=== PATIENT | male | born 1955 | race Caucasian/White ===

== ENCOUNTER 2023-03-13 08:48 | Outpatient (OUT) | payer MEDICARE, OTHER, SELFPAY ==
--- NOTE | 2023-03-13 08:54 | VEIN_ITS ---
Patient: LINO MENDEZ Exam Date: 03/13/2023 : 1955 Gender:M Ordering : DR MONA COELLO D.P.M. Admission #: [id number] Family : PETROS PECK WOUND C Order #: [id number] CLICK HERE TO VIEW EXAM RADIOLOGY REPORT PROCEDURE: VC EXT VENOUS REFLUX JULIETH LMTD COMPARISON: None. INDICATIONS: Painful varicose veins bilateral I83.813 TECHNIQUE: Duplex imaging of the lower extremity to assess the deep and superficial venous system for the presence of deep or superficial venous incompetence and to document the location and severity of disease. The study includes evaluation of the great saphenous vein (GSV), anterior accessory saphenous vein (AASV) and small saphenous vein (SSV). Patient scanned in reverse Trendelenburg and standing. FINDINGS: RIGHT LOWER EXTREMITY: Saphenofemoral Junction Reflux: Yes 7.7mm 1.6 sec GSV: Diam (mm) Reflux/ Time (sec) Proximal Thigh 6.5 Yes 1.2 Mid Thigh 5.2 Yes 0.4 Distal Thigh 5.5 Yes 3.8 Prox Calf 7.3 Yes 3.2 Mid Calf 4.2 Yes 2.2 Saphenopopliteal Junction Reflux: 5.7mm Yes 0.8 SSV: Proximal Calf 5.5 Yes 1.5 Mid Calf 3.8 Yes 0.8 AASV: Proximal Thigh 5.5 Yes 0.2 Mid Thigh 2.8 Yes 0.4 Distal Thigh Thrombi: No acute or chronic thrombus. Compressibility: Normal. Flow: Moderate deep venous reflux. Preforator: Dist medial lower leg near wound 4.1 mm with 3.8s reflux. Mid medial lower leg 4.8 mm, 2.5s reflux. Tech Note: Incompetent varicose vein mid medial lower leg measures 4.4 mm with 3.8s reflux. Popliteal fossa varicose vein measures 4.3 mm with 1.1s reflux. Varicosity distal medial thigh off GSV measures 4.0 mm with 3.2s reflux. Mid medial/anterior lower leg varicose vein measures 4.1 mm with 2.0s reflux. LEFT LOWER EXTREMITY: Saphenofemoral Junction Reflux: Yes 6.7 mm 1.8 sec GSV: Diam (mm) Reflux/Time (sec) Proximal Thigh 6.5 Yes 1.0 Mid Thigh 4.9 Yes 1.2 Distal Thigh 5.2 Yes 3.8 Prox Calf 5.3 Yes 3.9 Mid Calf 2.8 Yes 3.1 Saphenopopliteal Junction Relux: 6.4 mm Yes 3.5 SSV: Proximal Calf 5.9 Yes 3.8 Mid Calf 4.7 Yes 3.9 AASV: Proximal Thigh 1.9 No Mid Thigh Distal Thigh Thrombi: No acute or chronic thrombus. Compressibility: Normal. Flow: Mild deep venous reflux. Biomedical Service Engineer:Dist medial lower leg 3.2 mm with 2.0s reflux. Distal medial lower leg 3.8 mm with 2.4s reflux. Mid posterior calf 3.7 mm with 1.3s reflux. Tech Note: Incompetent varicose vein distal medial lower leg measures 4.0 mm with 2.8s reflux. Mid medial lower leg varicosity measures 4.9 mm with 1.0s reflux. Varicose vein proximal medial lower leg off GSV measures 6.1 mm with 3.7s reflux. Mid posterior calf varicose vein off of cementer oil well/gastroc measures 4.2 mm with 0.7s reflux. CONCLUSION: 1. Dilated, incompetent great saphenous vein bilaterally, small saphenous vein bilaterally, bilateral cementer oil well veins, and numerous incompetent branch saphenous varicosities. 2. Consultation for endovenous ablation is recommended. Dictated by: Gume De Jesus M.D. on 03/13/2023 at 10:20 Approved by: Gume De Jesus M.D. on 03/13/2023 at 11:12
--- NOTE | 2023-03-13 08:56 | VEIN_ITS ---
Patient: LINO MENDEZ Exam Date: 03/13/2023 : 1955 Gender:M Ordering : DR MONA COELLO D.P.M. Admission #: [id number] Family : PETROS PECK WOUND C Order #: [id number] CLICK HERE TO VIEW EXAM RADIOLOGY REPORT PROCEDURE: [facility] - OFFICE VISIT INITIAL COMPARISON: None. PROGRESS NOTES: [age] year old male who presents with a 10 year history of bulging dilated veins, discolored veins, leg pain and swelling, muscle cramping, edema. The patient's right leg symptoms are worse than the left. There has been a progression of symptoms over time. This increases with prolonged dependency. The patient describes an improvement with rest and elevation. The patient denies any signs and symptoms to suggest arterial ischemia. The patient describes a family history of varicose veins on maternal side. The patient has drinking and smoking history of : Occasional alcohol consumption; no tobacco use. Patient has a past medical history significant for hypertension and atrial fibrillation. The patient denies a history of deep venous thrombus or pulmonary embolus. See separate history and physical for medication list. No prior treatment for varicose or spider veins. Greater than 1 year use of compression stockings. After review of nurse notes, history and physical exam I discussed at length the pathophysiology of venous hypertension and possible treatments, therapies and strategies available. We discussed at length the importance of elevating the lower extremities above the level of the heart, increased physical activity and compression stocking use. Ultrasound venous reflux study performed today was discussed at length with the patient. The report demonstrates dilated and markedly incompetent great saphenous veins bilaterally, small saphenous veins bilaterally, multiple incompetent branch saphenous varicosity, and several incompetent railway shunter veins of which 1 is located deep to patient's reoccurring skin wound/ulcer of right calf. PHYSICAL EXAM: The right leg demonstrates multiple varicosities, scattered spider veins, no current ulceration, moderate-marked edema, mild skin discoloration. The left leg demonstrates multiple varicosities, scattered spider veins, no ulceration, moderate edema, moderate skin discoloration. Both thighs, legs and feet were symmetrically warm to the touch. Good posterior tibial and dorsalis pedis pulses were present bilaterally. IMPRESSION: 1. Bilateral lower extremity venous insufficiency 2. Bilateral lower extremity varicose veins 3. Bilateral lower extremity subcutaneous edema 4. No flow significant arterial disease 5. CEAP: C4a, EC, AP, IA PLAN: 1. Continued use of compression stockings 2. Elevated legs and increased physical activity symptomatic relief 3. Endovenous laser ablation of right great saphenous vein, left great saphenous vein, right small saphenous vein, left small saphenous vein, right calf railway shunter vein deep to reoccurring ulcer, bilateral microfoam chemical ablation, and sclerotherapy as needed for reticular veins. Nurse notes, history and physical were reviewed and confirmed, see attached forms. The nurse was present throughout the physical exam and consultation Dictated by: Gume De Jesus M.D. on 03/13/2023 at 11:15 Approved by: Gume De Jesus M.D. on 03/13/2023 at 11:49
== END 2023-03-13 08:49 ==
LOC: VC 08:51
DX: I83.813 Varicose veins of bilateral lower extremities with pain (principal); I87.2 Venous insufficiency (chronic) (peripheral)
CPT/HCPCS: 93970; G0463

== ENCOUNTER 2023-03-27 09:07 | Outpatient (OUT) | payer MEDICARE, OTHER, SELFPAY ==
--- NOTE | 2023-03-27 09:09 | VEIN_ITS ---
[address] [address] Patient Name: LINO MENDEZ MRN: [id number] date: 1955 Sex: M Assigned Patient Location: Current Patient Location: Accession/Order Number: [id number] Exam Date: 03/27/2023 09:12 Report Date: 03/27/2023 10:26 At the request of: LINO GUERRERO Procedure: VC Endovenous Ablation 1VeinRT EXAMINATION: VC Endovenous Ablation 1VeinRT, right great saphenous vein HISTORY: Pain due to varicose veins of bilateral legs I83.813 COMPARISON: No relevant comparison available. TECHNIQUE: The risks and benefits of the procedure had been previously discussed, and were rediscussed at length. Informed written consent was obtained. Angelita Small and Rafal Denson assisted. Time out procedure was performed. The right lower extremity was prepared and draped in the usual sterile fashion to allow knee flexion in the sterile field. Duplex ultrasound probe was draped in a sterile cover, sterile transmission gel was used. Venous mapping was performed with the areas of dilation and large tributaries marked. The total length was 71 cm from the entry 4 cm above the medial malleolus to 3 cm below the saphenofemoral junction. The diameter of the greater saphenous vein ranged from 5-12 mm. A 30 gauge needle and 1% buffered lidocaine was used to anesthetize the entry site. A 4 mm incision was made with a scalpel and the saphenous vein was entered percutaneously under direct ultrasound guidance with a micropuncture set, a single stick was successful in gaining access. A micro-guide wire was inserted and the needle removed. A micro-set including a dilator was inserted over the microwire and the needle and dilator were removed. A 0.018 guide wire was inserted through the micro-set and threaded through the saphenous vein to the saphenofemoral junction. The dilator was removed and an introducer sheath was inserted over the wire until the end of the sheath entered the saphenofemoral junction. The dilator and wire were removed and the 600 micron fiber was introduced and placed and positioned so that it extended beyond the sheath and was 3 cm peripheral to the saphenofemoral femoral junction. Final position of the fiber was determined by ultrasound guidance and duplex imaging. Tumescent anesthetic was delivered by ultrasound guidance. 350 cc of fluid was delivered along the entire course of the saphenous vein. The solution consisted of 1000 cc of normal saline with 40 mL of 1% lidocaine and 20 mL of sodium bicarbonate. A final positioning check was made. The energy source was turned on by means of the foot pedal and the fiber and sheath were withdrawn. The total number of Joules delivered was 3731. The laser was active for 466 seconds under continuous pulse, average laser use of 8 J. Laser start time 10:03 AM 03/27/2023. Laser stop time 10:11 AM 03/27/2023. Double energy was applied to the first 5 cm due to the patient being anticoagulated A duplex ultrasound revealed compressibility and flow at the saphenofemoral junction immediately after the procedure. Hemostasis at the access site was achieved. The skin incision of the saphenous vein was closed with a 4 x 4. A compression stocking was applied. Postop instructions were given. A follow up appointment was recommended and scheduled. The patient tolerated the procedure well and was discharged in good condition. IMPRESSION: Technically successful endovenous laser ablation of the right great saphenous vein Electronically authenticated by: LINO GUERRERO Date: 03/27/2023 10:26
== END 2023-03-27 09:08 ==
LOC: VC 09:08
PROVIDERS: PCP Radiology Diagnostic Radiology; Visit Provider Radiology Diagnostic Radiology
DX: I83.813 Varicose veins of bilateral lower extremities with pain (principal)
CPT/HCPCS: 36478

== ENCOUNTER 2023-04-02 08:58 | Outpatient (OUT) | payer MEDICARE, OTHER, SELFPAY ==
--- NOTE | 2023-04-02 | VEIN_ITS ---
Patient: LINO MENDEZ Exam Date: 04/02/2023 : 1955 Gender:M Ordering : DR LINO GUERRERO M.D. Admission #: [id number] Family : Order #: [id number] CLICK HERE TO VIEW EXAM RADIOLOGY REPORT PROCEDURE: VC EXT VENOUS RT LMTD COMPARISON: None. INDICATIONS: Phlebitis of superficial veins of rt lower extremity I80.01 TECHNIQUE: Lower extremity tidwell scale and Duplex Doppler evaluation of the deep venous system from the inguinal ligament through the calf veins. FINDINGS: REGION: Right lower extremity. THROMBI: Negative for DVT. Heat induced thrombus visualized 1.7 cm from the SFJ. The heat induced thrombus extends from groin to mid calf. COMPRESSIBILITY: Non-compressible segments. FLOW: Areas of no flow. OTHER: CONCLUSION: 1. Successful post ablation occlusion of right great saphenous vein. Dictated by: Gume De Jesus M.D. on 04/02/2023 at 11:24 Approved by: Gume De Jesus M.D. on 04/02/2023 at 11:25
--- NOTE | 2023-04-02 09:00 | VEIN_ITS ---
Patient: LINO MENDEZ Exam Date: 04/02/2023 : 1955 Gender:M Ordering : DR LINO GUERRERO M.D. Admission #: [id number] Family : Order #: [id number] CLICK HERE TO VIEW EXAM RADIOLOGY REPORT PROCEDURE: [facility] - OFFICE VISIT FOLLOW UP COMPARISON: None. PROGRESS NOTES: The patient reports that no significant tenderness and no inflammation or redness at site of treatment. There has been interval reduction in varicosities. The patient has followed our recommendations to walk 20-30 minutes once or twice per day since the procedure. Physical exam demonstrates minimal bruising; no signs of infection, and slight decrease in varicosities of the right leg. Persistent varicosities are identified along the legs bilaterally. Review of the ultrasound performed the same day demonstrates occlusive thrombus extending throughout the treated vein, see separate report, consistent with a successful ablation. No thrombus extending into or beyond the saphenofemoral junction. The patient expressed a desire to proceed with treatment of left great saphenous vein. The patient was informed that treatment was a process and would require several procedures/sessions. IMPRESSION: 1. Successful ablation of the right great saphenous vein 2. Persistent dilated, incompetent veins and bilateral lower extremity symptoms PLAN: 1. Endovenous laser ablation of left great saphenous vein. Nurse notes, history and physical were reviewed and confirmed, see attached forms. The nurse was present throughout the physical exam and consultation Dictated by: Gume De Jesus M.D. on 04/02/2023 at 11:25 Approved by: Gume De Jesus M.D. on 04/02/2023 at 11:27
== END 2023-04-02 08:59 | disposition home or self-care (01) ==
LOC: VC 08:59
PROVIDERS: PCP Radiology Diagnostic Radiology; Visit Provider Radiology Diagnostic Radiology
DX: I80.01 Phlebitis and thrombophlebitis of superficial vessels of right lower extremity (principal)
CPT/HCPCS: 93971; G0463

== ENCOUNTER 2023-04-06 12:57 | Outpatient (OUT) | payer MEDICARE, OTHER, SELFPAY ==
--- NOTE | 2023-04-06 | VEIN_ITS ---
[address] [address] Patient Name: LINO MENDEZ MRN: [id number] date: 1955 Sex: M Assigned Patient Location: Current Patient Location: Accession/Order Number: [id number] Exam Date: 04/06/2023 13:05 Report Date: 04/06/2023 14:16 At the request of: LINO GUERRERO Procedure: VC Endovenous Ablation 1VeinLT EXAMINATION: VC Endovenous Ablation 1VeinLT HISTORY: Pain due to varicose veins of bilateral legs I83.813 COMPARISON: No relevant comparison available. TECHNIQUE: The risks and benefits of the procedure had been previously discussed, and were rediscussed at length. Informed written consent was obtained. Seble Small and Rafal Denson assisted. Time out procedure was performed. The left lower extremity was prepared and draped in the usual sterile fashion to allow knee flexion in the sterile field. Duplex ultrasound probe was draped in a sterile cover, sterile transmission gel was used. Venous mapping was performed with the areas of dilation and large tributaries marked. The total length was 47 cm from the entry mid calf to 3 cm below the saphenofemoral junction. The diameter of the greater saphenous vein ranged from 5-10 mm. A 30 gauge needle and 1% buffered lidocaine was used to anesthetize the entry site. A 4 mm incision was made with a scalpel and the saphenous vein was entered percutaneously under direct ultrasound guidance with a micropuncture set, a single stick was successful in gaining access. A micro-guide wire was inserted and the needle removed. A micro-set including a dilator was inserted over the microwire and the needle and dilator were removed. A 0.018 guide wire was inserted through the micro-set and threaded through the saphenous vein to the saphenofemoral junction. The dilator was removed and an introducer sheath was inserted over the wire until the end of the sheath entered the saphenofemoral junction. The dilator and wire were removed and the 600 micron fiber was introduced and placed and positioned so that it extended beyond the sheath and was 3 cm peripheral to the saphenofemoral femoral junction. Final position of the fiber was determined by ultrasound guidance and duplex imaging. Tumescent anesthetic was delivered by ultrasound guidance. 250 cc of fluid was delivered along the entire course of the saphenous vein. The solution consisted of 1000 cc of normal saline with 40 mL of 1% lidocaine and 20 mL of sodium bicarbonate. A final positioning check was made. The energy source was turned on by means of the foot pedal and the fiber and sheath were withdrawn. The total number of Joules delivered was 2287. The laser was active for 286 seconds under continuous pulse, average laser use of 8 J. Laser start time 50 3:00 PM 04/06/2023 . Laser stop time 1:58 PM 04/06/2023 . A duplex ultrasound revealed compressibility and flow at the saphenofemoral junction immediately after the procedure. Hemostasis at the access site was achieved. The skin incision of the saphenous vein was closed with a 4 x 4. A compression stocking was applied. Postop instructions were given. A follow up appointment was recommended and scheduled. The patient tolerated the procedure well and was discharged in good condition . IMPRESSION: Technically successful endovenous laser ablation of the left great saphenous vein Electronically authenticated by: LINO GUERRERO Date: 04/06/2023 14:16
[2023-04-07] MEDS: LIDOCAINE HCL 10 ML, SODIUM BICARBONATE 1 MEQ INJ (07:43)
[2023-04-07] MEDS: 0.9 % SODIUM CHLORIDE 500 ML, LIDOCAINE HCL 20 ML, SODIUM BICARBONATE 10 MEQ INJ (07:43)
== END 2023-04-06 12:58 | disposition home or self-care (01) ==
LOC: VC 12:57
PROVIDERS: PCP Radiology Diagnostic Radiology; Visit Provider Radiology Diagnostic Radiology
DX: I83.813 Varicose veins of bilateral lower extremities with pain (principal)
CPT/HCPCS: 36478

== ENCOUNTER 2023-04-10 07:30 | Outpatient (OUT) | payer MEDICARE, OTHER, SELFPAY ==
--- NOTE | 2023-04-10 07:32 | VEIN_ITS ---
Patient: CHANG MENDEZ Exam Date: 04/10/2023 : 1955 Gender:M Ordering : DR CHANG DEVINE M.D. Admission #: [id number] Family : Order #: [id number] CLICK HERE TO VIEW EXAM RADIOLOGY REPORT PROCEDURE: [facility] - OFFICE VISIT FOLLOW UP COMPARISON: FACILITY EST LMTD, 04/02/2023. PROGRESS NOTES: The patient reports no significant difficulty following intravenous laser ablation of the left great saphenous vein. The patient does report some mild pain in the distal left medial thigh. The patient did not require oral analgesics. The patient has worn his compression stocking as directed. The patient has followed our recommendations to walk 20-30 minutes once or twice per day since the procedure. Physical exam demonstrates no areas of erythema warmth or new ulceration. Thrombosed left great saphenous vein to be palpated. Review of the ultrasound performed the same day demonstrates occlusive thrombus extending throughout the treated left great saphenous vein with heat induced thrombus 1.2 cm from the saphenofemoral junction. The epigastric vein remains patent. The patient expressed a desire to proceed with treatment of incompetent left small saphenous vein with intravenous laser ablation. IMPRESSION: 1. Successful ablation of the left great saphenous vein 2. Incompetent left small saphenous vein PLAN: Intravenous laser ablation left small saphenous vein Nurse notes, history and physical were reviewed and confirmed, see attached forms. The nurse was present throughout the physical exam and consultation Dictated by: Chang Devine MD on 04/10/2023 at 08:21 Approved by: Chang Devine MD on 04/10/2023 at 08:23
--- NOTE | 2023-04-10 07:32 | VEIN_ITS ---
Patient: CHANG MENDEZ Exam Date: 04/10/2023 : 1955 Gender:M Ordering : DR CHANG DEVINE M.D. Admission #: [id number] Family : Order #: [id number] CLICK HERE TO VIEW EXAM RADIOLOGY REPORT PROCEDURE: VC EXT VENOUS LT LIMITED COMPARISON: None. INDICATIONS: I80.02 Phlebitis of superficial veins of lt lower extremity TECHNIQUE: Lower extremity tidwell scale and Duplex Doppler evaluation of the deep venous system from the inguinal ligament through the calf veins. FINDINGS: REGION: Left lower extremity. THROMBI: Negative for DVT. Heat induced thrombus in left GSV 1.2 cm from SFJ and extends to proximal calf. COMPRESSIBILITY: Non-compressible segments corresponding to thrombus. FLOW: Absent flow corresponding to thrombus *Exam performed in accordance with [facility] practice guidelines- Peripheral venous ultrasound, January 05, 2010. CONCLUSION: Post ablation occlusion of the left great saphenous vein with heat induced thrombus 1.2 cm from the saphenofemoral junction Dictated by: Chang Devine MD on 04/10/2023 at 07:54 Approved by: Chang Devine MD on 04/10/2023 at 07:56
== END 2023-04-10 07:31 | disposition home or self-care (01) ==
LOC: VC 07:30
PROVIDERS: PCP Radiology Diagnostic Radiology; Visit Provider Radiology Diagnostic Radiology
DX: I80.02 Phlebitis and thrombophlebitis of superficial vessels of left lower extremity (principal); I83.92 Asymptomatic varicose veins of left lower extremity
CPT/HCPCS: 93971; G0463

== ENCOUNTER 2023-04-27 12:54 | Outpatient (OUT) | payer MEDICARE, OTHER, SELFPAY ==
--- NOTE | 2023-04-27 12:56 | VEIN_ITS ---
[address] [address] Patient Name: LINO MENDEZ MRN: [id number] date: 1955 Sex: M Assigned Patient Location: Current Patient Location: Accession/Order Number: [id number] Exam Date: 04/27/2023 13:00 Report Date: 04/27/2023 16:02 At the request of: LINO GUERRERO Procedure: VC Endovenous Ablation 1VeinLT EXAMINATION: VC Endovenous Ablation 1VeinLT HISTORY: I83.813 Pain due to varicose veins of bilateral legs COMPARISON: No relevant comparison available. TECHNIQUE: The risks and benefits of the procedure had been previously discussed, and were rediscussed at length. Informed written consent was obtained. Cailin Escobar and Rafal Denson assisted. Time out procedure was performed. The left lower extremity was prepared and draped in the usual sterile fashion . Duplex ultrasound probe was draped in a sterile cover, sterile transmission gel was used. Venous mapping was performed with the areas of dilation and large tributaries marked. The total length was 21 cm from the entry mid calf to the distal thigh, this is a tiny extension. The diameter of the small saphenous vein ranged from 4-6 mm. A 30 gauge needle and 1% buffered lidocaine was used to anesthetize the entry site. A 4 mm incision was made with a scalpel and the saphenous vein was entered percutaneously under direct ultrasound guidance with a micropuncture set, a single stick was successful in gaining access. A micro-guide wire was inserted and the needle removed. A micro-set including a dilator was inserted over the microwire and the needle and dilator were removed. A 0.018 guide wire was inserted through the micro-set and threaded through the saphenous vein to the saphenofemoral junction. The dilator was removed and an introducer sheath was inserted over the wire until the end of the sheath entered the saphenofemoral junction. The dilator and wire were removed and the 600 micron fiber was introduced and placed and positioned so that it extended beyond the sheath and was 3 cm peripheral to the saphenofemoral femoral junction. Final position of the fiber was determined by ultrasound guidance and duplex imaging. Tumescent anesthetic was delivered by ultrasound guidance. 125 cc of fluid was delivered along the entire course of the saphenous vein. The solution consisted of 1000 cc of normal saline with 40 mL of 1% lidocaine and 20 mL of sodium bicarbonate. A final positioning check was made. The energy source was turned on by means of the foot pedal and the fiber and sheath were withdrawn. The total number of Joules delivered was 992. The laser was active for 124seconds under continuous pulse, average laser use of 8 J. Laser start time 1350 04/27/2023 . Laser stop time 1350 to 04/27/2023 . A duplex ultrasound revealed compressibility and flow at the saphenofemoral junction immediately after the procedure. Hemostasis at the access site was achieved. The skin incision of the saphenous vein was closed with a 4 x 4. A compression stocking was applied. Postop instructions were given. A follow up appointment was recommended and scheduled. The patient tolerated the procedure well and was discharged in good condition . VEIN/VC Endovenous Ablation 1VeinLT IMPRESSION: Technically successful endovenous laser ablation left small saphenous vein Electronically authenticated by: LINO GUERRERO Date: 04/27/2023 16:02
[2023-04-27] MEDS: LIDOCAINE HCL 10 ML, SODIUM BICARBONATE 1 MEQ INJ (13:33)
[2023-04-27] MEDS: 0.9 % SODIUM CHLORIDE 500 ML, LIDOCAINE HCL 20 ML, SODIUM BICARBONATE 10 MEQ INJ (13:33)
== END 2023-04-27 12:55 | disposition home or self-care (01) ==
LOC: VC 12:54
PROVIDERS: PCP Radiology Diagnostic Radiology; Visit Provider Radiology Diagnostic Radiology
DX: I83.813 Varicose veins of bilateral lower extremities with pain (principal)
CPT/HCPCS: 36478

== ENCOUNTER 2023-05-05 08:12 | Outpatient (OUT) | payer MEDICARE, OTHER, SELFPAY ==
--- NOTE | 2023-05-05 08:13 | VEIN_ITS ---
Patient: LINO MENDEZ Exam Date: 05/05/2023 : 1955 Gender:M Ordering : DR LINO GUERRERO M.D. Admission #: [id number] Family : Order #: [id number] CLICK HERE TO VIEW EXAM RADIOLOGY REPORT PROCEDURE: VC EXT VENOUS LT LIMITED COMPARISON: VC EXT VENOUS LT LIMITED, 04/10/2023. INDICATIONS: I80.02 Phlebitis of superficial veins of lt lower extremity TECHNIQUE: Lower extremity tidwell scale and Duplex Doppler evaluation of the deep venous system from the inguinal ligament through the calf veins. FINDINGS: REGION: Left lower extremity. THROMBI: Negative for DVT. Heat induced thrombus visualized in SSV starting at distal thigh and continues through distal calf. COMPRESSIBILITY: Non-compressible segments. FLOW: Areas of no flow. OTHER: CONCLUSION: 1. Successful post ablation occlusion of left small saphenous vein. Dictated by: Gume De Jesus M.D. on 05/05/2023 at 11:34 Approved by: Gume De Jesus M.D. on 05/05/2023 at 11:36
--- NOTE | 2023-05-05 08:13 | VEIN_ITS ---
Patient: LINO MENDEZ Exam Date: 05/05/2023 : 1955 Gender:M Ordering : DR LINO GUERRERO M.D. Admission #: [id number] Family : Order #: [id number] CLICK HERE TO VIEW EXAM RADIOLOGY REPORT PROCEDURE: [facility] EST LMTD VEIN CENTER - OFFICE VISIT FOLLOW UP COMPARISON: [facility], 04/10/2023. PROGRESS NOTES: The patient reports improvement in leg symptoms. There has been interval reduction in varicosities. The patient has followed our recommendations to walk 20-30 minutes once or twice per day since the procedure. Physical exam demonstrates decrease in varicosities of the leg. Persistent varicosities are identified along the legs bilaterally. Review of the ultrasound performed the same day demonstrates occlusive thrombus extending throughout the treated vein(s), see separate report, consistent with a successful ablation. No thrombus extending into or beyond the saphenofemoral junction. The patient expressed a desire to proceed with treatment of remaining incompetent varicosities. The patient was informed that treatment was a process and would require several procedures[facility]sessions. [facility]: 1. Successful ablation of the left small saphenous vein(s). 2. Persistent incompetent varicose veins and lower extremity symptoms. PLAN: 1. Endovenous laser ablation of right small saphenous vein. Nurse notes, history and physical were reviewed and confirmed, see attached forms. The nurse was present throughout the physical exam and consultation Dictated by: Gume De Jesus M.D. on 05/05/2023 at 11:36 Approved by: Gume De Jesus M.D. on 05/05/2023 at 11:40
== END 2023-05-05 08:13 | disposition home or self-care (01) ==
LOC: VC 08:13
PROVIDERS: PCP Radiology Diagnostic Radiology; Visit Provider Radiology Diagnostic Radiology
DX: I83.813 Varicose veins of bilateral lower extremities with pain (principal)
CPT/HCPCS: 93971; G0463

== ENCOUNTER 2023-05-14 09:00 | Outpatient (OUT) | payer MEDICARE, OTHER, SELFPAY ==
--- NOTE | 2023-05-14 | VEIN_ITS ---
[address] [address] Patient Name: LINO MENDEZ MRN: [id number] date: 1955 Sex: M Assigned Patient Location: Current Patient Location: Accession/Order Number: [id number] Exam Date: 05/14/2023 08:58 Report Date: 05/14/2023 10:47 At the request of: LINO GUERRERO Procedure: VC Endovenous Ablation 1VeinRT EXAMINATION: VC Endovenous Ablation 1VeinRT HISTORY: Pain due to varicose veins of bilateral legs I83.813 The risks and benefits of the procedure had been previously discussed, and were rediscussed at length. Informed written consent was obtained. Asya Corrales RN and Kasey Buck RDMS assisted. Time out procedure was performed. The right lower extremity was prepared and draped in the usual sterile fashion to allow knee flexion in the sterile field. Duplex ultrasound probe was draped in a sterile cover, sterile transmission gel was used. Venous mapping was performed with the areas of dilation and large tributaries marked. The total length was 30 cm from the entry 3 cm above the medial malleolus to 3 cm below the saphenofemoral popliteal junction. The diameter of the greater saphenous vein ranged from 5.5 mm. A 30 gauge needle and 1% buffered lidocaine was used to anesthetize the entry site. A 4 mm incision was made with a scalpel and the saphenous vein was entered percutaneously under direct ultrasound guidance with a micropuncture set, a single stick was successful in gaining access. A micro-guide wire was inserted and the needle removed. A micro-set including a dilator was inserted over the microwire and the needle and dilator were removed. A guide wire was inserted through the micro-set and guided through the saphenous vein to the saphenofemoral junction. The dilator was removed and an introducer sheath was inserted over the wire until the end of the sheath entered the saphenofemoral junction. The dilator and wire were removed and the 600 micron fiber was introduced and placed and positioned so that it extended beyond the sheath and was 3 cm distal to the saphenofemoral femoral junction. Final position of the fiber was determined by ultrasound guidance and duplex imaging. Tumescent anesthetic was delivered by ultrasound guidance. 150 cc of fluid was delivered along the entire course of the saphenous vein. The solution consisted of 1000 cc of normal saline with 40 mL of 1% lidocaine and 20 mL of sodium bicarbonate. A final positioning check was made. The energy source was turned on by means of the foot pedal and the fiber and sheath were withdrawn. The total number of Joules delivered was 1824. The laser was active for 228seconds under continuous pulse, average laser use of 8 J. Laser start time 9:50 AM, 05/14/2023. Laser stop time 9:53 AM, 05/14/2023. A duplex ultrasound revealed compressibility and flow at the saphenofemoral junction immediately after the procedure. Hemostasis at the access site was achieved. The skin incision of the saphenous vein was closed with a 4 x 4. A compression stocking was applied. Postop instructions were given. A follow up appointment was recommended and scheduled. The patient tolerated the procedure well. Electronically authenticated by: RUFINA OBREGON Date: 05/14/2023 10:47
[2023-05-14] MEDS: 0.9 % SODIUM CHLORIDE 500 ML, LIDOCAINE HCL 20 ML, SODIUM BICARBONATE 10 MEQ INJ (09:43)
[2023-05-14] MEDS: LIDOCAINE HCL 10 ML, SODIUM BICARBONATE 1 MEQ INJ (09:44)
== END 2023-05-14 09:01 | disposition home or self-care (01) ==
LOC: VC 09:00
PROVIDERS: PCP Radiology Diagnostic Radiology; Visit Provider Radiology Diagnostic Radiology
DX: I83.813 Varicose veins of bilateral lower extremities with pain (principal)
CPT/HCPCS: 36478

== ENCOUNTER 2023-05-20 08:33 | Outpatient (OUT) | payer MEDICARE, OTHER, SELFPAY ==
--- NOTE | 2023-05-20 | VEIN_ITS ---
Patient: LINO MENDEZ Exam Date: 05/20/2023 : 1955 Gender:M Ordering : DR LINO GUERRERO M.D. Admission #: [id number] Family : Order #: [id number] CLICK HERE TO VIEW EXAM RADIOLOGY REPORT PROCEDURE: [facility] EST L[facility]D VEIN CENTER - OFFICE VISIT FOLLOW UP [facility] PROGRESS NOTES: The patient reports improvement in leg symptoms. There has been interval reduction in varicosities. The patient has followed our recommendations to walk 20-30 minutes once or twice per day since the procedure. Physical exam demonstrates decrease in varicosities of the leg. Persistent varicosities are identified along the leg and moderate lower extremity edema and skin erythema. No evidence of infection at entry sites. Review of the ultrasound performed the same day demonstrates occlusive thrombus extending throughout the treated vein(s), see separate report, consistent with a successful ablation. No thrombus extending into or beyond the saphenofemoral junction. The patient expressed a desire to proceed with treatment of remaining incompetent varicosities. The patient was informed that treatment was a process and would require several procedures/sessions. VEIN/[facility] EST TD IMPRESSION: 1. Successful ablation of the right small saphenous vein(s). 2. Persistent incompetent varicose veins and bilateral lower extremity symptoms. PLAN: Endovenous laser ablation of distal right lower extremity machine rug cleaner veins. Nurse notes, history and physical were reviewed and confirmed, see attached forms. The nurse was present throughout the physical exam and consultation Dictated by: Gume De Jesus M.D. on 05/20/2023 at 10:08 Approved by: Gume De Jesus M.D. on 05/20/2023 at 10:10
--- NOTE | 2023-05-20 | VEIN_ITS ---
Patient: LINO MENDEZ Exam Date: 05/20/2023 : 1955 Gender:M Ordering : DR LINO GUERRERO M.D. Admission #: [id number] Family : Order #: [id number] CLICK HERE TO VIEW EXAM RADIOLOGY REPORT PROCEDURE: VC EXT VENOUS RT LMTD COMPARISON: VC EXT VENOUS RT LMTD, 04/02/2023. INDICATIONS: Phlebitis of superficial veins of rt lower extremity I80.01 TECHNIQUE: Lower extremity tidwell scale and Duplex Doppler evaluation of the deep venous system from the inguinal ligament through the calf veins. FINDINGS: REGION: Right lower extremity. THROMBI: Negative for DVT. Heat induced thrombus in right SSV 7.5 mm from gastroc vein and 3.8 cm from popliteal junction. COMPRESSIBILITY: Non-compressible segments. FLOW: Areas of no flow. OTHER: Varicose veins remain. CONCLUSION: 1. Successful post ablation occlusion of right small saphenous vein. Dictated by: Gume De Jesus M.D. on 05/20/2023 at 09:57 Approved by: Gume De Jesus M.D. on 05/20/2023 at 10:08
== END 2023-05-20 08:34 | disposition home or self-care (01) ==
LOC: VC 08:33
PROVIDERS: PCP Radiology Diagnostic Radiology; Visit Provider Radiology Diagnostic Radiology
DX: I80.01 Phlebitis and thrombophlebitis of superficial vessels of right lower extremity (principal)
CPT/HCPCS: 93971; G0463

== ENCOUNTER 2023-06-01 10:28 | Outpatient (OUT) | payer MEDICARE, OTHER, SELFPAY ==
--- NOTE | 2023-06-01 | VEIN_ITS ---
[address] [address] Patient Name: LINO MENDEZ MRN: [id number] date: 1955 Sex: M Assigned Patient Location: Current Patient Location: Accession/Order Number: [id number] Exam Date: 06/01/2023 10:35 Report Date: 06/01/2023 11:47 At the request of: LINO GUERRERO Procedure: VC Endovenous Perf Ablation RT EXAMINATION: VC Endovenous Perf Ablation RT COMPARISON: INDICATIONS: Pain due to varicose veins of bilateral legs I83.813 OPERATIVE REPORT: Diagnosis: Superficial venous reflux, incompetent perforating veins Procedure: Endovenous laser ablation of the right head of mobile(s) Procedure: The patient was positioned supine on the table and the leg was prepped and draped to allow for visualization during venous access. A sterile cover was draped over a 16 Mhz ultrasound probe. Venous mapping was performed prior to the procedure noting location and size of vessel(s). Quality Inspector vein 1: Distal medial right lower leg. The diameter of the vein ranged from 3.5 mm's below the muscular fascia to 3.5 mm's at the entry point. Using a 30 gauge needle the entry site was anesthetized with 1 cc of 1% buffered lidocaine. Access was gained percutaneously, with a 21-gauge needle, into the head of mobile vein under ultrasound guidance. The needle was advanced into the desired position and the pre-measured 400-micron fiber was then inserted into the needle and locked in place. The position of the fiber was imaged with ultrasound guidance. The fiber tip was visualized to be 10 mm from the deep vessel. An anesthetic solution of 4 cc 1% buffered lidocaine was delivered along the course of the vein under ultrasound guidance using a syringe. A final positioning check of the laser fiber tip was performed. The laser was activated by means of a foot-pedal and the fiber and needle were withdrawn together in accordance to the desired joules per treatment area/spot weld. 3 areas/spot welds were performed, and the total number of joules delivered was 176. The total time of energy delivery was 21 seconds. A duplex ultrasound revealed compressibility and flow of the deep system immediately after the procedure. Hemostasis of the access site was achieved and dressed. A 20-30 mm compression stocking over coban was placed on the treated leg. Post-Op instructions were given, and a follow-up appointment was made. Quality Inspector vein 2: Proximal medial right lower leg. The diameter of the vein ranged from 4 mm's below the muscular fascia to 4 mm's at the entry point. Using a 30 gauge needle the entry site was anesthetized with 1 cc of 1% buffered lidocaine. Access was gained percutaneously, with a 21-gauge needle, into the head of mobile vein under ultrasound guidance. The needle was advanced into the desired position and the pre-measured 400-micron fiber was then inserted into the needle and locked in place. The position of the fiber was imaged with ultrasound guidance. The fiber tip was visualized to be 10 mm from the deep vessel. An anesthetic solution of 3 cc 1% buffered lidocaine was delivered along the course of the vein under ultrasound guidance using a syringe. A final positioning check of the laser fiber tip was performed. The laser was activated by means of a foot-pedal and the fiber and needle were withdrawn together in accordance to the desired joules per treatment area/spot weld. 3 areas/spot welds were performed, and the total number of joules delivered was 172. The total time of energy delivery was 21 seconds. A duplex ultrasound revealed compressibility and flow of the deep system immediately after the procedure. Hemostasis of the access site was achieved and dressed. A 20-30 mm compression stocking over coban was placed on the treated leg. Post-Op instructions were given, and a follow-up appointment was made. CONCLUSION: 1. Technically successful endovenous laser ablation of 2 lower right leg head of mobile veins Electronically authenticated by: RUFINA OBREGON Date: 06/01/2023 11:47
[2023-06-01] MEDS: LIDOCAINE HCL 20 ML, SODIUM BICARBONATE 2 MEQ INJ (10:38)
== END 2023-06-01 10:29 | disposition home or self-care (01) ==
LOC: VC 10:28
PROVIDERS: PCP Radiology Diagnostic Radiology; Visit Provider Radiology Diagnostic Radiology
DX: I83.813 Varicose veins of bilateral lower extremities with pain (principal)
CPT/HCPCS: 36478

== ENCOUNTER 2023-06-22 08:55 | Outpatient (OUT) | payer MEDICARE, OTHER, SELFPAY ==
--- NOTE | 2023-06-22 | VEIN_ITS ---
Patient: CHANG MENDEZ Exam Date: 06/22/2023 : 1955 Gender:M Ordering : DR CHANG DEVINE M.D. Admission #: [id number] Family : Order #: [id number] CLICK HERE TO VIEW EXAM RADIOLOGY REPORT PROCEDURE: VC EXT VENOUS RT LMTD COMPARISON: VC EXT VENOUS RT LMTD, 05/20/2023. VC EXT VENOUS RT LMTD, 04/02/2023. INDICATIONS: Phlebitis of superficial veins of rt lower extremity I80.01 TECHNIQUE: Lower extremity tidwell scale and Duplex Doppler evaluation of the deep venous system from the inguinal ligament through the calf veins. FINDINGS: REGION: Right lower extremity. THROMBI: Negative for DVT. Heat induced thrombus in beading sawyer distal lower leg 2.9 mm from PTV. Heat induced thrombus in beading sawyer proximal medial lower leg at least 2.6 cm from gastroc. COMPRESSIBILITY: Non-compressible segments corresponding to thrombus FLOW: Areas of absent flow corresponding to thrombus. CONCLUSION: 1. Post ablation occlusion of treated incompetent perforating veins on the right leg 2. Incompetent varicose veins Dictated by: Chang Devine MD on 06/22/2023 at 09:31 Approved by: Chang Devine MD on 06/22/2023 at 09:33
--- NOTE | 2023-06-22 | VEIN_ITS ---
Patient: CHANG MENDEZ Exam Date: 06/22/2023 : 1955 Gender:M Ordering : DR CHNAG DEVINE M.D. Admission #: [id number] Family : Order #: [id number] CLICK HERE TO VIEW EXAM RADIOLOGY REPORT PROCEDURE: [facility]ILITY EST LMTD VEIN CENTER - OFFICE VISIT FOLLOW UP COMPARISON: [facility]ILITY EST LMTD, 05/20/2023. FACILITY EST LMTD, 05/05/2023. PROGRESS NOTES: The patient reports no significant problems following intravenous laser ablation right leg perforating veins. The patient did not require oral analgesics for the patient has worn his compression stockings as directed. The patient has followed our recommendations to walk 20-30 minutes once or twice per day since the procedure. Physical exam demonstrates no areas of erythema warmth or active ulceration. Thrombosed perforating veins cannot be palpated. Areas of bruising Review of the ultrasound performed the same day demonstrates occlusive thrombus extending throughout the treated perforating veins. No deep vein thrombus. Incompetent bilateral dilated varicose vein. The patient expressed a desire to proceed with treatment of varicose veins with micro foam chemical ablation. VEIN/ Facility EST LMTD IMPRESSION: 1. Successful ablation of right leg incompetent perforating vein 2. Persistent bilateral dilated incompetent varicose veins. PLAN: Micro foam chemical ablation left leg varicose veins Nurse notes, history and physical were reviewed and confirmed, see attached forms. The nurse was present throughout the physical exam and consultation Dictated by: Chang Devine MD on 06/22/2023 at 09:34 Approved by: Chang Devine MD on 06/22/2023 at 09:58
== END 2023-06-22 08:56 | disposition home or self-care (01) ==
LOC: VC 08:56
PROVIDERS: PCP Radiology Diagnostic Radiology; Visit Provider Radiology Diagnostic Radiology
DX: I80.01 Phlebitis and thrombophlebitis of superficial vessels of right lower extremity (principal)
CPT/HCPCS: 93971; G0463

== ENCOUNTER 2023-06-29 14:10 | Outpatient (OUT) | payer MEDICARE, OTHER, SELFPAY ==
--- NOTE | 2023-06-29 14:12 | VEIN_ITS ---
The [address] [address] Patient Name: LINO MENDEZ MRN: [id number] date: 1955 Sex: M Assigned Patient Location: Current Patient Location: Accession/Order Number: [id number] Exam Date: 06/29/2023 14:30 Report Date: 06/29/2023 15:34 At the request of: LINO GUERRERO Procedure: VC INJ Foam Sclerosant WUS WALLCOVERING TEXTURER PROCEDURE: VC INJ Foam Sclerosant WUS WALLCOVERING TEXTURER COMPARISON: None. HISTORY: Pain due to varicose veins of bilateral legs I83.813 Pre-operative Diagnosis: CEAP class C4a venous insufficiency with pain, tenderness, edema and incompetent greater and small saphenous vein(s) and varicose veins, chronic venous insufficiency left leg secondary to venous incompetence Post-operative Diagnosis: CEAP class C4a venous insufficiency with pain, tenderness, edema and incompetent greater and small saphenous vein(s) and varicose veins, chronic venous insufficiency left leg secondary to venous incompetence Procedure Performed: 1. Ultrasound-guided microfoam chemical ablation with Varithenaregistered 2. Intraoperative ultrasound guidance Anesthesia: None Indications for Procedure: 67-year-old male presents with a 10 year history of lower extremity pain and swelling and cramping resulting in significant hemosiderin staining. The patient fell Conservative medical therapy including medical compression stockings, exercise and analgesics. Prior procedures include a venous laser ablation. Multiple incompetent varicosities of the left leg. Duplex scan showed reflux and enlarged diameters up to 5 mm. The patient underwent informed consent including management options where the complications of infection, bleeding, pain, and skin injury were discussed. Particular attention was spent discussing thrombus extension and deep vein thrombosis as well as the possibility of pulmonary embolus and treatment with oral or injectable blood thinners. Procedure: The patient walked to the procedure room. All applicable staff donned appropriate apparel. A procedure timeout was performed to confirm correct patient, correct extremity, correct procedure, and correct room set-up including presence of all applicable supplies, devices, and drugs. A duplex ultrasound, performed by myself confirmed the location and incompetence of branch saphenous varicosities and their course was marked on the skin together with the dilated tributaries. The extent of treatment of the vein and the associated varicosities was determined through ultrasound mapping. The skin was prepped and then punctured with a butterfly needle and advanced under ultrasound guidance. The Varithenaregistered canister was activated and the canister was primed and purged as required in the instructions for use. Varithenaregistered was drawn into a sterile syringe. The following injections made: 8 cc injected into a 5 mm varicose vein distal medial left lower leg 7 cc injected to 4 mm varicose vein distal lateral left lower leg Varithenaregistered was slowly administered at 0.5-1.0 cc/second with close observation by ultrasound of its course in the vessels. Total volume utilized was: 15 cc. Following administration of Varithenaregistered the leg was elevated and the patient was asked to repeatedly dorsiflex the ankle to limit flow of Varithenaregistered into perforating veins. Once appropriate spasm had been confirmed in the treated veins, the vascular catheter was removed from the leg and light pressure was applied over the puncture site for hemostasis. The common femoral and deep superficial veins were then evaluated for flow and compressibility prior to dressing placement. The lower extremity was kept elevated at 45 degrees above the horizontal and cording material was applied over the saphenous segments and tributaries to allow for eccentric compression over the target vessels including the targeted saphenous vein(s). A multilayer dressing was applied consisting of foam pads, coban and thigh-high 20-30 mm Hg compression elastic support hose were placed on the patient. The leg was lowered only after compression had been applied and the patient was immediately ambulatory. The patient ambulated 10 minutes under supervision and was without apparent concerns at time of release. Post-care instructions include advising patient to keep post-treatment bandages in place and dry for 48 hours, avoid extended periods of inactivity, avoid heavy exercise for one week, wear compression stockings on the treated leg continuously for two weeks, to walk daily for 10 minutes over the next month. The patient was instructed to take an anti-inflammatory medicine as needed and to follow up for color duplex scan of the Saphenous veins, the treated branch saphenous varicosities, the adjacent deep veins, and additional treatment within 7 days. PERSONNEL: Rafal Denson RN Electronically authenticated by: LINO GUERRERO Date: 06/29/2023 15:34
== END 2023-06-29 14:11 | disposition home or self-care (01) ==
LOC: VC 14:11
PROVIDERS: PCP Radiology Diagnostic Radiology; Visit Provider Radiology Diagnostic Radiology
DX: I83.813 Varicose veins of bilateral lower extremities with pain (principal)
CPT/HCPCS: 36466

== ENCOUNTER 2023-07-03 09:36 | Outpatient (OUT) | payer MEDICARE, OTHER, SELFPAY ==
--- NOTE | 2023-07-03 | VEIN_ITS ---
Patient: LINO MENDEZ Exam Date: 07/03/2023 : 1955 Gender:M Ordering : DR LINO GUERRERO M.D. Admission #: [id number] Family : Order #: [id number] CLICK HERE TO VIEW EXAM RADIOLOGY REPORT PROCEDURE: VC EXT VENOUS LT LIMITED COMPARISON: VC EXT VENOUS LT LIMITED, 05/05/2023. INDICATIONS: Phlebitis of superficial veins of lt lower extremity I80.02 TECHNIQUE: Lower extremity tidwell scale and Duplex Doppler evaluation of the deep venous system from the inguinal ligament through the calf veins. FINDINGS: REGION: Left lower extremity. THROMBI: Negative for DVT. Chemically induced thrombus in left leg varicose veins. COMPRESSIBILITY: Non-compressible segments. FLOW: Areas of no flow. OTHER: Patent varicosity posterior mid calf connects to aviation consultant and SSV, 4.0 mm. No other siginifcant varicosities remain. CONCLUSION: 1. Successful post ablation occlusion of treated branch saphenous varicosities. Dictated by: Gume De Jesus M.D. on 07/03/2023 at 12:07 Approved by: Gume De Jesus M.D. on 07/03/2023 at 12:07
--- NOTE | 2023-07-03 | VEIN_ITS ---
Patient: LINO MENDEZ Exam Date: 07/03/2023 : 1955 Gender:M Ordering : DR LINO GUERRERO M.D. Admission #: [id number] Family : Order #: [id number] CLICK HERE TO VIEW EXAM RADIOLOGY REPORT PROCEDURE: [facility] EST LMTD VEIN CENTER - OFFICE VISIT FOLLOW UP [facility] PROGRESS NOTES: The patient reports improvement in leg symptoms. There has been interval reduction in varicosities. The patient has followed our recommendations to walk 20-30 minutes once or twice per day since the procedure. Physical exam demonstrates decrease in varicosities of the leg. No significant varicosities are identified along the left leg and patient's swelling has significantly decreased from original presentation. Review of the ultrasound performed the same day demonstrates occlusive thrombus extending throughout the treated vein(s), see separate report, consistent with a successful ablation. No thrombus extending into or beyond the saphenofemoral junction. The patient expressed a desire to proceed with treatment of remaining incompetent varicosities within the right lower extremity. The patient was informed that treatment was a process and would require 1-2 procedures/sessions. VEIN/[facility] EST TD IMPRESSION: 1. Successful ablation of the treated branch saphenous vein(s). 2. Persistent incompetent varicose veins and right lower extremity symptoms. PLAN: Microfoam chemical ablation of right lower extremity incompetent branch saphenous varicosities. Nurse notes, history and physical were reviewed and confirmed, see attached forms. The nurse was present throughout the physical exam and consultation Dictated by: Gume De Jesus M.D. on 07/03/2023 at 12:05 Approved by: Gume De Jesus M.D. on 07/03/2023 at 12:07
== END 2023-07-03 09:37 | disposition home or self-care (01) ==
LOC: VC 09:37
PROVIDERS: PCP Radiology Diagnostic Radiology; Visit Provider Radiology Diagnostic Radiology
DX: I80.02 Phlebitis and thrombophlebitis of superficial vessels of left lower extremity (principal)
CPT/HCPCS: 93971; G0463

== ENCOUNTER 2023-07-13 07:54 | Outpatient (OUT) | payer MEDICARE, OTHER, SELFPAY ==
--- NOTE | 2023-07-13 07:56 | VEIN_ITS ---
[address] [address] Patient Name: LINO MENDEZ MRN: [id number] date: 1955 Sex: M Assigned Patient Location: Current Patient Location: Accession/Order Number: [id number] Exam Date: 07/13/2023 07:55 Report Date: 07/13/2023 09:11 At the request of: LINO GUERRERO Procedure: VC INJ Foam Sclerosant WUS [employer]FFIC CONTROL SUPERVISOR PROCEDURE: VC INJ Foam Sclerosant WUS [employer] TRAFFIC CONTROL SUPERVISOR COMPARISON: None. HISTORY: Pain due to varicose veins of bilateral legs I83.813 Pre-operative Diagnosis: CEAP class C4a venous insufficiency with pain, tenderness, edema and incompetent right greater and small saphenous veins and incompetent varicose veins, chronic venous insufficiency right leg secondary to venous incompetence Post-operative Diagnosis: CEAP class C4a venous insufficiency with pain, tenderness, edema and incompetent right greater and small saphenous veins and incompetent varicose veins, chronic venous insufficiency right leg secondary to venous incompetence Procedure Performed: 1. Ultrasound-guided microfoam chemical ablation with Varithenaregistered 2. Intraoperative ultrasound guidance Anesthesia: None Indications for Procedure: 67-year-old male. Symptoms include pain swelling tenderness and hemosiderin staining, the patient fell conservative medical therapy including medical compression stockings, exercise and analgesics. Prior procedures include endovenous laser ablation. Multiple incompetent varicosities of the right leg. Duplex scan showed reflux and enlarged diameters up to 5 mm. The patient underwent informed consent including management options where the complications of infection, bleeding, pain, and skin injury were discussed. Particular attention was spent discussing thrombus extension and deep vein thrombosis as well as the possibility of pulmonary embolus and treatment with oral or injectable blood thinners. Procedure: The patient walked to the procedure room. All applicable staff donned appropriate apparel. A procedure timeout was performed to confirm correct patient, correct extremity, correct procedure, and correct room set-up including presence of all applicable supplies, devices, and drugs. A duplex ultrasound, performed by myself confirmed the location and incompetence of branch saphenous varicosities and their course was marked on the skin together with the dilated tributaries. The extent of treatment of the vein and the associated varicosities was determined through ultrasound mapping. The skin was prepped and then punctured with a butterfly needle and advanced under ultrasound guidance. The Varithenaregistered canister was activated and the canister was primed and purged as required in the instructions for use. Varithenaregistered was drawn into a sterile syringe. The following injections were made: 5 cc injection into a 4 mm varicose vein distal medial right lower leg/ankle 5 cc injected into a 5 mm varicose vein proximal medial right lower leg 5 mm injection into a 3 mm varicose vein distal lateral right lower leg Varithenaregistered was slowly administered at 0.5-1.0 cc/second with close observation by ultrasound of its course in the vessels. Total volume utilized was: 15cc. Following administration of Varithenaregistered the leg was elevated and the patient was asked to repeatedly dorsiflex the ankle to limit flow of Varithenaregistered into perforating veins. Once appropriate spasm had been confirmed in the treated veins, the vascular catheter was removed from the leg and light pressure was applied over the puncture site for hemostasis. The common femoral and deep superficial veins were then evaluated for flow and compressibility prior to dressing placement. The lower extremity was kept elevated at 45 degrees above the horizontal and cording material was applied over the saphenous segments and tributaries to allow for eccentric compression over the target vessels including the targeted saphenous vein(s). A multilayer dressing was applied consisting of foam pads, coban and thigh-high 20-30 mm Hg compression elastic support hose were placed on the patient. The leg was lowered only after compression had been applied and the patient was immediately ambulatory. The patient ambulated 10 minutes under supervision and was without apparent concerns at time of release. Post-care instructions include advising patient to keep post-treatment bandages in place and dry for 48 hours, avoid extended periods of inactivity, avoid heavy exercise for one week, wear compression stockings on the treated leg continuously for two weeks, to walk daily for 10 minutes over the next month. The patient was instructed to take an anti-inflammatory medicine as needed and to follow up for color duplex scan of the Saphenous veins, the treated branch saphenous varicosities, the adjacent deep veins, and additional treatment within 7 days. PERSONNEL: Rafal Denson RN Electronically authenticated by: LINO GUERRERO Date: 07/13/2023 09:11
== END 2023-07-13 07:55 | disposition home or self-care (01) ==
LOC: VC 07:54
PROVIDERS: PCP Radiology Diagnostic Radiology; Visit Provider Radiology Diagnostic Radiology
DX: I83.813 Varicose veins of bilateral lower extremities with pain (principal)
CPT/HCPCS: 36466

== ENCOUNTER 2023-07-21 08:00 | Outpatient (OUT) | payer MEDICARE, OTHER, SELFPAY ==
--- NOTE | 2023-07-21 | VEIN_ITS ---
Patient: CHANG MENDEZ Exam Date: 07/21/2023 : 1955 Gender:M Ordering : DR CHANG DEVINE M.D. Admission #: [id number] Family : Order #: [id number] CLICK HERE TO VIEW EXAM RADIOLOGY REPORT PROCEDURE: FACILITY EST LMTD VEIN CENTER - OFFICE VISIT FOLLOW UP COMPARISON: [facility] EST LMTD, 07/03/2023. FACILITY EST LMTD, 06/22/2023. PROGRESS NOTES: The patient reports no significant problems following micro foam chemical ablation of left leg incompetent varicose veins. The patient did not require oral analgesics. The patient has worn his compression stockings but does complain of continued swelling. The patient has continued his walking regimen walking 2-4 miles every day. Physical exam demonstrates multiple thrombosed varicose veins in both legs, left greater than right. No areas of erythema or warmth to suggest cellulitis or thrombophlebitis. No active ulceration. Moderate bilateral pitting subcutaneous edema below the knees. Review of the ultrasound performed the same day demonstrates occlusive thrombus extending throughout the treated left leg varicose veins with no deep vein thrombus. No residual varicose veins are observed. I discussed with the patient proper use of compression stockings which should be put on immediately in the morning after showering to prevent swelling. The patient has been using the compression stockings after his swelling occurs sometime in the afternoon. I did recommend the patient's step up to 30-40 mm compression stockings if he does not adequate resolution with 20-30 mm compression stockings applied as directed. The patient was asked to return in 1 year for follow-up earlier if he develops any new symptoms. VEIN/ Facility EST LMTD IMPRESSION: 1. Successful ablation of treated left leg incompetent varicose veins PLAN: Treatment plan is complete. Follow-up in 1 year recommended Nurse notes, history and physical were reviewed and confirmed, see attached forms. The nurse was present throughout the physical exam and consultation Dictated by: Chang Devine MD on 07/21/2023 at 08:44 Approved by: Chang Devine MD on 07/21/2023 at 08:47
--- NOTE | 2023-07-21 | VEIN_ITS ---
Patient: CHANG MENDEZ Exam Date: 07/21/2023 : 1955 Gender:M Ordering : DR CHANG DEVINE M.D. Admission #: [id number] Family : Order #: [id number] CLICK HERE TO VIEW EXAM RADIOLOGY REPORT PROCEDURE: VC EXT VENOUS RT LMTD COMPARISON: VC EXT VENOUS RT LMTD, 06/22/2023. VC EXT VENOUS RT LMTD, 05/20/2023. INDICATIONS: Phlebitis of superficial veins of rt lower extremity I80.01 TECHNIQUE: Lower extremity tidwell scale and Duplex Doppler evaluation of the deep venous system from the inguinal ligament through the calf veins. FINDINGS: REGION: Right lower extremity. THROMBI: Negative for DVT. Varithena induced thrombus visualized at mid/med calf, prox/med calf, and distal/med thigh. COMPRESSIBILITY: Non-compressible segments corresponding to thrombus. FLOW: Absent flow corresponding to thrombus. OTHER: No patent varicose veins remain. CONCLUSION: Post ablation occlusion of treated varicose veins. Dictated by: Chang Devine MD on 07/21/2023 at 08:26 Approved by: Chang Devine MD on 07/21/2023 at 08:28
== END 2023-07-21 08:01 | disposition home or self-care (01) ==
LOC: VC 08:00
PROVIDERS: PCP Radiology Diagnostic Radiology; Visit Provider Radiology Diagnostic Radiology
DX: I80.01 Phlebitis and thrombophlebitis of superficial vessels of right lower extremity (principal)
CPT/HCPCS: 93971; G0463

== ENCOUNTER 2024-05-18 07:49 | Outpatient (OUT) | payer MEDICARE, OTHER, SELFPAY ==
--- NOTE | 2024-05-17 12:42 | VEINCLINIC_ITS ---
Vital Signs 05/18/24 07:33 05/18/24 07:34 05/18/24 07:54 Height 6 ft Weight 93.509 kg 99.79 kg Waist Circumference 6 ft BP 118/74 BP Location Left Brachial BP Position Sitting BP Cuff Size Adult BP Source Manual Cuff Respiration 18 Pulse 60 Pulse Source Monitor Pulse Oximetry (%) 95 Oxygen Delivery Method Room Air Varicose Veins Patient is a 68 year old male referred by Dr. Stack. Patient was last seen 07/13/2023. He has a history of varicose vein disease including EVLT treatments of bilateral leg GSV's and SSV's along with right leg perforating veins followed by bilateral leg microfoam chemical ablation branch saphenous varicosities. Patient in this day secondary to left lower leg cellulitis with a slow healing ulcer to left mid lateral lower leg. Patient has a 13 year history of varicose vein disease. Patient c/o bilateral leg edema and pain left worse than right. Bilateral lower legs are red and edematous. Patient symptoms include heaviness, achiness, edema, and muscle spasms. Patient notes symptoms worsen with standing for long periods of time and decrease wtih rest and elevation along with Ibuprofen and compression stocking use. Patient has a family history of varicose vein disease from his mother. Patient is an occasional drinker of alcohol, denies smoking and illicit drug use. Past medical history include atrial fibrillation, pacemaker insertion, congestive heart failure, and hypertension. Patient denies history of DVT. Patient states he has been wearing his compression stockings daily since last seen in 2022. Patient walks and bikes daily for exercise. IGume MD personally performed the services described in this documentation, as scribed by Rafal Denson RN in my presence and it is both accurate and complete. Rafal Hawkins RN, am scribing for, and in the presence of, Dr. Gume De Jesus and in the presence of the patient. . knee: bilateral, calf: bilateral, ankle: bilateral and sparks: bilateral aching, burning, cramping and tender 3 1 month Worsened in recent months: Yes standing analgesics, elevating extremities, compression stockings and exercise Reports muscle spasms of leg, erythema, fatigue, heaviness, limb pain, edema and leg edema History of lower extremity trauma: No Superficial thrombophlebitis: No Family history of varicose veins: yes Has patient had previous lower extremity venous surgery: Yes Patient has previously received the following treatment(s) for lower extremity varicose veins: Reports sclerotherapy, foam therapy and laser therapy Does patient have a history of : not applicable Has patient had lower extremity venous scan with relux testing: Yes Support hose used: Yes Problems walking or doing physical activity: Yes How does it affect you: most recent pain secondary to cellulitis Do you walk much: Yes Do you stand much: Yes Review of Systems ROS Status of ROS 10 or more systems reviewed and unremark able except as noted in history and below Cardiovascular Reports: edema Integumentary/Breast Reports: itching, redness, skin pain, skin tenderness, skin swelling, new lesion, non-healing lesion and changes in skin color Neurological Reports: weakness in extremities PFSH PFS Medical History (Updated 05/18/24 @ 07:30 by Rafal Denson) Bilateral leg edema ?R60.0 - Localized edema (ICD-10) Cellulitis ?L03.90 - Cellulitis, unspecified (ICD-10) Pacemaker ?Z95.0 - Presence of cardiac pacemaker (ICD-10) Varicose veins of bilateral lower extremities with pain ?I83.813 - Varicose veins of bilateral lower extremities with pain (ICD-10) Hypertension ?I10 - Essential (primary) hypertension (ICD-10) Sinus bradycardia ?R00.1 - Bradycardia, unspecified (ICD-10) Atrial fibrillation ?I48.91 - Unspecified atrial fibrillation (ICD-10) Heart disease ?I51.9 - Heart disease, unspecified (ICD-10) Surgical History (Updated 05/18/24 @ 07:30 by Rafal Denson) History of appendectomy ?Z90.49 - Acquired absence of other specified parts of digestive tract (ICD- 10) Family History (Updated 05/18/24 @ 07:31 by Rafal Denson) Mother Varicose veins of bilateral lower extremities with pain Other Family history of COPD (chronic obstructive pulmonary disease) Heart disease Social History (Updated 05/18/24 @ 07:32 by Rafal Denson) Within the past year, how often did you have a drink containing alcohol: 2-4 times a month Smoking status: Never smoker Non-prescribed substance use: denies use Meds Home Medications and Allergies Home Medications ?Medication ?Instructions ?Recorded ?Confirmed ?Type apixaban 5 mg tablet (Eliquis) 5 mg PO BID 05/18/24 05/18/24 History hydrochlorothiazide 12.5 mg tablet 12.5 mg PO QAM 05/18/24 05/18/24 History lisinopril 5 mg tablet 5 mg PO DAILY 05/18/24 05/18/24 History metoprolol tartrate 25 mg tablet 25 mg PO DAILY 05/18/24 05/18/24 History omega 1-yza-tzr-fish oil 1,000 mg 1 cap PO DAILY 05/18/24 05/18/24 History (120 mg-180 mg) capsule (Fish Oil) Allergies Allergy/AdvReac Type Severity Reaction Status Date / Time Penicillins Allergy Severe Anaphylaxis Verified 05/18/24 07:35 Exam Constitutional Documenting provider has reviewed patient's vital signs: yes Common normals: oriented x3 Cardio Peripheral pulses: dorsalis pedis pulses present Extremity Common normals: normal capillary refill General: edema Right lower extremity: lower leg Right lower leg: inspection and palpation Left lower extremity: lower leg Left lower leg: inspection and palpation Neuro Common normals: oriented x3 Results Additional Findings Additional findings: Bilateral leg reflux u/s reveals no significant varicose vein disease at this time. Gume Hawkins MD personally performed the services described in this documentation, as scribed by Rafal Denson RN in my presence and it is both accurate and complete. Rafal Hawkins RN, am scribing for, and in the presence of, Dr. Gume De Jesus and in the presence of the patient. Assessment and Plan Assessment and Plan (1) Varicose veins of bilateral lower extremities with pain: Plan Dr. De Jesus examines patient and reveiws results of bilateral leg reflux u/s. Patient and Dr. De Jesus create plan of care. Plan is for patient to continue use of bilateral leg compression stockings, exercise, rest, and elevation of bilateral legs/feet. Patient to f/u with PCP for probable change in diuretic therapy. Gume Hawkins MD personally performed the services described in this documentation, as scribed by Rafal Denson RN in my presence and it is both accurate and complete. Rafal Hawkins RN, am scribing for, and in the presence of, Dr. Gume De Jesus and in the presence of the patient.
--- NOTE | 2024-05-17 12:43 | W.VEIN ---
Discharge Plan Discharge Disposition: Home, Self-Care Follow Up Appointments: no f/u with vein clinic necessary at this time Plan of Treatment: No significant varicose vein disease noted. Patient to f/u with PCP for probable change in diuretic therapy. Gume Hawkins MD personally performed the services described in this documentation, as scribed by Rafal Denson RN in my presence and it is both accurate and complete. Rafal Hawkins RN, am scribing for, and in the presence of, Dr. Gume De Jesus and in the presence of the patient. Print Language: Vietnamese Discharge Date/Time: 05/18/24 09:05
--- NOTE | 2024-05-18 07:50 | VEIN_ITS ---
Patient Name: LINO MENDEZ MR#: [id number] : 1955 Exam Date: 05/18/2024 Ordering Doctor: DR RUFINA OBREGON M.D. RADIOLOGY REPORT PROCEDURE: VC FACILITY EST COMPREHENSIVE VEIN CENTER - OFFICE VISIT INITIAL COMPARISON: None. PROGRESS NOTES: [age] year old male who presents with a 13 year history of dilated bulging veins and lower extremity pain and swelling. Recent new onset of bilateral lower extremity swelling, heaviness, aching. The patient's left leg symptoms are worse than the right. There has been a progression of symptoms over past several months. This increases with prolonged like dependency. The patient describes an improvement with elevation of legs. The patient denies any signs and symptoms to suggest arterial ischemia. The patient describes a family history of varicose veins, heart disease, COPD. The patient has drinking and smoking history of occasional alcohol consumption; no tobacco use. Patient has a past medical history significant for cellulitis, varicose veins, hypertension, heart disease. The patient denies a history of deep venous thrombus or pulmonary embolus. See separate history and physical for medication list. Prior treatment for varicose or spider veins. Current use of compression stockings. After review of nurse notes, history and physical exam I discussed at length the pathophysiology of venous hypertension and possible treatments, therapies and strategies available. We discussed at length the importance of elevating the lower extremities above the level of the heart, increased physical activity and compression stocking use. Ultrasound venous reflux study performed today was discussed at length with the patient. The report demonstrates no abnormally dilated or incompetent superficial veins in need of treatment. PHYSICAL EXAM: The right leg demonstrates no significant varicosities, a few scattered spider veins, no ulceration, marked edema of foot, distal lower extremity skin discoloration/erythema. The left leg demonstrates no significant varicosities, a few scattered spider veins, no ulceration, marked edema of foot, distal lower extremity skin discoloration erythema. Both thighs, legs and feet were symmetrically warm to the touch. Good posterior tibial and dorsalis pedis pulses were present bilaterally. VEIN/VC Facility EST Comprehensive IMPRESSION: 1. No significant venous insufficiency 2. No significant lower extremity varicose veins 3. Moderate-marked lower extremity subcutaneous edema involving the feet. 4. No flow significant arterial disease 5. CEAP: C3, EC, AN, PN PLAN: 1. Continued use of compression stockings 2. Elevated legs and increased physical activity symptomatic relief 3. Follow-up with research phlebotomist for evaluation of decreased heart function. 4. Follow-up with family physician for evaluation of kidney function and management of diuretic. Nurse notes, history and physical were reviewed and confirmed, see attached forms. The nurse was present throughout the physical exam and consultation Dictated by: Rufina Obregon M.D. on 05/18/2024 at 09:07 Approved by: Rufina Obregon M.D. on 05/18/2024 at 09:14
--- NOTE | 2024-05-18 07:50 | VEIN_ITS ---
Patient Name: LINO MENDEZ MR#: [id number] : 1955 Exam Date: 05/18/2024 Ordering Doctor: DR RUFINA OBREGON M.D. RADIOLOGY REPORT PROCEDURE: VC EXT VENOUS REFLUX JULIETH LMTD COMPARISON: VC EXT VENOUS REFLUX JULIETH LMTD, 03/13/2023. INDICATIONS: I83.813 - Varicose veins of bilateral lower extremities with pain TECHNIQUE: Duplex imaging of the lower extremity to assess the deep and superficial venous system for the presence of deep or superficial venous incompetence and to document the location and severity of disease. The study includes evaluation of the great saphenous vein (GSV), anterior accessory saphenous vein (AASV) and small saphenous vein (SSV). Patient scanned in reverse Trendelenburg and standing. FINDINGS: RIGHT LOWER EXTREMITY: Saphenofemoral Junction Reflux: Yes 5.5mm 1.4 sec GSV: Diam (mm) Reflux/ Time (sec) Proximal Thigh N/A Mid Thigh N/A Distal Thigh N/A Prox Calf N/A Mid Calf N/A Saphenopopliteal Junction Reflux: 3.3mm Yes 0.5 SSV: Proximal Calf N/A Mid Calf N/A AASV: Proximal Thigh 4.8 Yes 0.8 Mid Thigh 3.1 Yes 0.3 Distal Thigh Thrombi: Multiple previously treated varicose veins with thrombus visualized. Compressibility: Non compressible varicose veins. Flow: Mild deep venous reflux. Preforator: Distal medial thigh 2.6 mm with 0.8s reflux. Tech Note: Marked edema noted. Previously treated GSV, SSV, and multiple varicose veins. Incompetent varicose vein medial knee off of AASV measures 2.4 mm with 1.3s reflux. LEFT LOWER EXTREMITY: Saphenofemoral Junction Reflux: 4.0 mm 0.5 sec GSV: Diam (mm) Reflux/Time (sec) Proximal Thigh N/A Mid Thigh N/A Distal Thigh N/A Prox Calf N/A Mid Calf N/A Saphenopopliteal Junction Relux: 4.1 mm Yes 0.9 SSV: Proximal Calf N/A Mid Calf N/A AASV: Proximal Thigh 2.9 Yes 0.7 Mid Thigh 1.8 Yes 0.4 Distal Thigh Thrombi: Chemcially induced thrombus in multiple varicose veins. Compressibility: Non compressible varicose veins. Flow: Moderate deep venous reflux. Senior Software Qa Analyst: Mid medial posterior calf 2.7 mm with 1.4s reflux. Mid lateral lower leg near wound measures 3.7 mm with 1.9s reflux. Tech Note: Marked edema noted. Previously treated GSV, SSV, and multiple varicose veins. Distal SSV is still patent and connected to a roving hauler. Incompetent varicose vein distal lateral lower leg measures 2.7 mm with 0.8s reflux. CONCLUSION: 1. No significant superficial vein dilation or incompetency in need of treatment at this time. Dictated by: Rufina Obregon M.D. on 05/18/2024 at 08:52 Approved by: Rufina Obregon M.D. on 05/18/2024 at 09:07
[2024-05-18 07:54] VITALS: BP 118/74; PULSE 60; O2SAT 95
== END 2024-05-18 09:05 | disposition home or self-care (01) ==
LOC: VC 07:49
PROVIDERS: PCP Podiatrist Foot & Ankle Surgery; Visit Provider Radiology Diagnostic Radiology
DX: I87.2 Venous insufficiency (chronic) (peripheral) (principal); L03.116 Cellulitis of left lower limb
CPT/HCPCS: 93970; G0463